=== PATIENT | male | born 1950 | race Caucasian/White ===

== ENCOUNTER 2023-07-24 10:33 | Outpatient (CLI) | payer MEDICARE, BC, SELFPAY ==
--- NOTE | 2023-07-24 12:50 | P.ANES_ITS ---
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
== END 2023-07-24 10:34 | disposition home or self-care (01) ==
PROVIDERS: PCP Family Medicine; Visit Provider Internal Medicine Gastroenterology
DX: Z12.11 Encounter for screening for malignant neoplasm of colon (principal)
CPT/HCPCS: 00812; 45378; 99100; J2704

== ENCOUNTER 2023-08-29 12:33 | Emergency (ER) | payer MEDICARE, BC, SELFPAY ==
[2023-08-29] VITALS (33 sets, daily range): BP systolic 90–133; BP diastolic 53–67; PULSE 83–95; RESP 18; TEMP 36.7; O2SAT 92–100; BMI 22.2
--- NOTE | 2023-08-29 13:00 | ED.GENADULT ---
HPI - General Adult General Date Seen: 08/29/23 Chief complaint: Chest Pain Stated complaint: Chest pain, arms numb Time Seen by Provider: 08/29/23 12:41 History of Present Illness HPI narrative: 72-year-old gentleman cries with a history of coronary disease and LAD stents, aortic stenosis and TAVR, type 2 diabetes, diabetic retinopathy, prostate cancer and prostatectomy, Parkinson's disease. He normal follows with [facility] for his primary care. He is on aspirin but not Plavix for his coronary disease. He last had stents about 3 years ago. He had a T IV are 1 or 2 years ago. He had a follow-up echocardiogram 2 months ago in June that he says was normal. He is on glipizide, metformin, Jardiance for diabetes. He is on carbidopa/levodopa for Parkinson's. He takes baby aspirin and Lipitor for his coronary disease. He is normally very active and physically active all the time. He works at a [employer] and often does a lot of heavy lifting and exertion. He notes that for the past 2 weeks or 10 days he has been symptomatic worse sometimes when he exerts heavily he gets mild discomfort in his chest. Symptoms have gotten worse for the past couple of days and in particular he noted this morning when he was caring a box of books for his at home he got substernal chest discomfort with bilateral upper arm weakness and numbness. This was very reminiscent to him of when he had a blockage in his coronary is a few years ago. For his episodes of chest discomfort always occur with exertion and get better with rest. Initially he had do fairly strenuous exertion triggered but today he was only caring a box a short distance when he got the symptoms. Episode happened about 10 this morning, 3 hours prior to presentation. As he presents to the ER he is not having any active symptoms per No shortness of breath. No recent cough. No fever. No swelling in his legs. No recent travel. No recent black or bloody stools. No abdominal pain. No nausea or vomiting. No history of anemia. He does take Sinemet for Parkinson's and needs his afternoon time dose. Related Data Home Medications Medication Instructions Recorded Confirmed aspirin 81 mg capsule 81 mg PO DAILY 08/29/23 08/29/23 atorvastatin 40 mg tablet 40 mg PO HS 08/29/23 08/29/23 carbidopa 25 mg-levodopa 100 mg 2 tab PO TID 08/29/23 08/29/23 tablet cyanocobalamin (vitamin B-12) 500 500 mcg PO DAILY 08/29/23 08/29/23 mcg tablet empagliflozin 25 mg tablet 25 mg PO DAILY 08/29/23 08/29/23 (Jardiance) ergocalciferol (vitamin D2) 1,250 1,250 mcg PO 3XW 08/29/23 08/29/23 mcg (50,000 unit) capsule (Drisdol) glipizide 10 mg tablet, extended 10 mg PO DAILY 08/29/23 08/29/23 release 24 hr metformin 500 mg tablet 1,000 mg PO BID 08/29/23 08/29/23 nitroglycerin 0.4 mg sublingual 0.4 mg sublingual Q5M PRN 08/29/23 08/29/23 tablet Allergies Allergy/AdvReac Type Severity Reaction Status Date / Time No Known Drug Allergies Allergy Verified 08/29/23 12:44 [facility] Social History Smoking Status: Never smoker Do you use any of these nicotine containing products: None Non-prescribed substance use: denies use Exam Narrative: Exam Narrative: Constitutional: Appears well-developed and well-nourished. Alert. Conversant. Non toxic. HENT: Head: Atraumatic. Nose: Nose normal. Mouth/Throat: Oral mucosa is clear and moist. no trismus. Pharynx normal. Tonsils symmetric. No tonsillar enlargement, erythema, or exudate. Eyes: Conjunctivae normal. EOM normal. Pupils equal, round, and reactive to light. No scleral icterus. Neck: Normal range of motion. Neck supple. No tracheal deviation present. No JVD Cardiovascular: Normal rate, regular rhythm. No gallop. No friction rub. Cyst on murmur heard. Symmetric radial and PT artery pulses Pulmonary/Chest: Effort normal. No stridor. No respiratory distress. No wheezes. No rales. No rhonchi . No tenderness. Abdominal: Soft. Bowel sounds normal. No distension. No mass. No tenderness. No rebound. No guarding. Musculoskeletal: RUE: Normal range of motion. No tenderness. No deformity LUE: Normal range of motion. No tenderness. No deformity RLE: Normal range of motion. No edema. No tenderness. No deformity LLE: Normal range of motion. No edema. No tenderness. No deformity Neurological: Alert and oriented to person, place, and time. Normal strength. CN II-VII intact. No sensory deficit. GCS eye subscore is 4. GCS verbal subscore is 5. GCS motor subscore is 6. Normal coordination Skin: Skin is warm and dry. Pale but no mottling or diaphoresis. No rash noted. No pallor. Normal capillary refill. Psychiatric: Normal mood. Normal affect. Const: Vital Signs, click to edit/add: Vital Signs - 24 hr 08/29/23 12:44 08/29/23 12:48 08/29/23 12:49 Temperature 98.1 F Pulse Rate 87 88 Pulse Rate [Pulse Oximeter] 92 Respiratory Rate 18 Blood Pressure 102/63 Blood Pressure [Ri ght Upper Arm] 120/67 Pulse Oximetry 99 98 97 Oxygen Delivery Me thod Room Air 08/29/23 13:00 08/29/23 13:02 08/29/23 13:15 Temperature Pulse Rate 87 88 93 Pulse Rate [Pulse Oximeter] Respiratory Rate Blood Pressure 96/62 Blood Pressure [Ri ght Upper Arm] Pulse Oximetry 97 98 97 Oxygen Delivery Me thod 08/29/23 13:22 08/29/23 13:31 08/29/23 13:41 Temperature Pulse Rate 87 95 89 Pulse Rate [Pulse Oximeter] Respiratory Rate Blood Pressure 108/60 105/61 Blood Pressure [Ri ght Upper Arm] Pulse Oximetry 97 96 97 Oxygen Delivery Me thod 08/29/23 13:45 08/29/23 14:00 08/29/23 14:02 Temperature Pulse Rate 86 84 88 Pulse Rate [Pulse Oximeter] Respiratory Rate Blood Pressure 92/53 L Blood Pressure [Ri ght Upper Arm] Pulse Oximetry 97 96 99 Oxygen Delivery Me thod 08/29/23 14:15 08/29/23 14:22 08/29/23 14:23 Temperature Pulse Rate 83 86 84 Pulse Rate [Pulse Oximeter] Respiratory Rate Blood Pressure 107/61 Blood Pressure [Ri ght Upper Arm] Pulse Oximetry 96 97 97 Oxygen Delivery Me thod 08/29/23 14:30 08/29/23 14:42 08/29/23 14:45 Temperature Pulse Rate 92 88 86 Pulse Rate [Pulse Oximeter] Respiratory Rate Blood Pressure 100/60 Blood Pressure [Ri ght Upper Arm] Pulse Oximetry 97 98 99 Oxygen Delivery Me thod 08/29/23 15:00 08/29/23 15:01 08/29/23 15:15 Temperature Pulse Rate 85 83 85 Pulse Rate [Pulse Oximeter] Respiratory Rate Blood Pressure 109/63 Blood Pressure [Ri ght Upper Arm] Pulse Oximetry 97 97 98 Oxygen Delivery Me thod 08/29/23 15:21 08/29/23 15:21 08/29/23 15:30 Temperature Pulse Rate 83 83 83 Pulse Rate [Pulse Oximeter] Respiratory Rate Blood Pressure 104/62 104/62 Blood Pressure [Ri ght Upper Arm] Pulse Oximetry 98 98 99 Oxygen Delivery Me thod 08/29/23 15:42 08/29/23 15:45 08/29/23 16:00 Temperature Pulse Rate 90 84 86 Pulse Rate [Pulse Oximeter] Respiratory Rate Blood Pressure 107/61 Blood Pressure [Ri ght Upper Arm] Pulse Oximetry 98 99 99 Oxygen Delivery Me thod 08/29/23 16:02 08/29/23 16:15 08/29/23 16:21 Temperature Pulse Rate 88 93 85 Pulse Rate [Pulse Oximeter] Respiratory Rate Blood Pressure 90/63 105/63 Blood Pressure [Ri ght Upper Arm] Pulse Oximetry 92 98 98 Oxygen Delivery Me thod 08/29/23 16:44 08/29/23 16:45 08/29/23 17:00 Temperature Pulse Rate 86 86 91 Pulse Rate [Pulse Oximeter] Respiratory Rate Blood Pressure 133/57 L Blood Pressure [Ri ght Upper Arm] Pulse Oximetry 98 99 99 Oxygen Delivery Me thod 08/29/23 17:02 Temperature Pulse Rate 94 Pulse Rate [Pulse Oximeter] Respiratory Rate Blood Pressure 106/53 L Blood Pressure [Ri ght Upper Arm] Pulse Oximetry 100 Oxygen Delivery Me thod Course Course ED Course: Recheck-vital signs stable. Asymptomatic while resting in bed. Discussed anemia with the patient and his Reevaluation(s) Reevaluation #1: Recheck-discussed with Cardiology, Dr. Avila. She agrees that patient would benefit from transfer to [place] where he can have further evaluation for his anemia and if angina fails to improve could have an angiogram to re-evaluate his coronaries per Reevaluation #2: Recheck-consent obtained for blood transfusion. Transfer to [place] will be delayed by at least a few hours due to bed availability. Vital Signs Vital signs: Initial Vital Signs Temperature 98.1 F 08/29/23 12:44 Temperature Source Temporal Artery Scan 08/29/23 12:44 Pulse Rate 92 08/29/23 12:44 Respiratory Rate 18 08/29/23 12:44 Blood Pressure 120/67 08/29/23 12:44 Blood Pressure Mean 84 08/29/23 12:44 Blood Pressure Position Sitting 08/29/23 12:44 Pulse Oximetry 99 08/29/23 12:44 Oxygen Delivery Method Room Air 08/29/23 12:44 Vital Signs Temperature 98.1 F 08/29/23 12:44 Pulse Rate 92 08/29/23 12:44 Respiratory Rate 18 08/29/23 12:44 Blood Pressure 120/67 08/29/23 12:44 Pulse Oximetry 99 08/29/23 12:44 Oxygen Delivery Method Room Air 08/29/23 12:44 Temperature 98.1 F 08/29/23 12:44 Pulse Rate 94 08/29/23 17:02 Respiratory Rate 18 08/29/23 12:44 Blood Pressure 106/53 L 08/29/23 17:02 Pulse Oximetry 100 08/29/23 17:02 Oxygen Delivery Method Room Air 08/29/23 12:44 Medications Administered Medications: Discontinued Medications Generic Name Dose Route Start Last Admin Trade Name Esmer PRN Reason Stop Dose Admin Aspirin 162 mg 08/29/23 13:19 08/29/23 13:46 Aspirin 81 Mg Tab.Chew PO 08/29/23 13:20 162 mg ONCE ONE Administration Carbidopa/Levodopa 2 tab 08/29/23 15:45 08/29/23 15:50 Carbidopa-Levodopa 25-100 Tablet PO 08/29/23 15:46 2 tab ONCE ONE Administration Medical Decision Making [facility] Narrative Medical decision making narrative: Very pleasant 72-year-old gentleman with a known history of coronary disease and LAD stents also a known history of aortic stenosis with TAVR presenting to the ER today with intermittent substernal chest discomfort and bilateral arm numbness and weakness associated with exertion. Symptoms are very concerning for unstable angina and symptoms intermittently progressing for the past week or 10 days. In particular he had worsening more severe symptoms this morning. At the time of presentation he is pain-free. Initial EKG does not show any evidence for STEMI or active ischemia. Initial troponin is minimally positive at 0.05. Surprisingly he also was found to be markedly anemic with a hemoglobin of 7.4. He denies any recent black or bloody stools or any other significant external bleeding. Source of his anemia is unclear. At this point it is possible that the anemia is creating a situation of demand ischemia creating his anginal-type symptoms. With anemia and since we have not definitively rule out GI bleeding, will hold off on aspirin or other anticoagulant here in the ER. I have ordered a 1st unit of packed red cells to be transfused here in the ER which will help with the patient's symptomatic anemia. In consultation with Cardiology from [facility] our plan will be transfer to [facility] where he can have transfusion until anginal symptoms abhishek and further workup for his anemia. He will be transferred to the telemetry floor. Lab Data Labs: Lab Results 08/29/23 08/29/23 Range/Units 12:45 15:53 WBC 6.77 (4.50-11.00) K/uL RBC 2.74 L (4.30-5.90) m/uL Hgb 7.4 L* (13.5-17.5) gm/dL Hct 23.7 L (37.0-53.0) % MCV 87 (80-100) fL MCH 27 (26-34) pg MCHC 31 L (32-36) gm/dL RDW Coeff of Stacey 14.3 (11.5-15.5) % Plt Count 136 L (140-440) K/uL Neut % (Auto) 81.9 H (42.0-72.0) % Lymph % (Auto) 11.1 L (20-44) % [place] % (Auto) 6.5 (0.0-11.0) % Eos % (Auto) 0.1 (0.0-7.0) % Baso % (Auto) 0.3 (0.0-3.0) % Neut # (Auto) 5.50 (1.7-7.0) K/uL Lymph # (Auto) 0.80 L (0.90-2.90) K/uL [place] # (Auto) 0.40 (0.00-0.90) K/UL Eos # (Auto) 0.01 (0.00-0.50) K/uL Baso # (Auto) 0.02 (0.00-0.30) K/uL Abs Immat Gran (auto) 0.01 (0.00-0.30) K/uL Imm/Tot Granulo (auto) 0.1 % Sodium 134 L (135-149) mmol/L Potassium 5.2 H (3.6-5.1) mmol/L Chloride 107 (96-114) mmol/L Carbon Dioxide 17 L (20-32) mmol/L Anion Gap 10 (7-15) mEq/L BUN 47 H (7-30) mg/dL Creatinine 0.9 (0.5-1.5) mg/dL Estimated Creat Clear 63.31 Estimated GFR 90 ml/min Glucose 264 H (60-115) mg/dL Calcium 9.3 (8.4-10.6) mg/dL Troponin I 0.05 H (0.01-0.04) ng/mL Blood Type O Negative Antibody Screen NEGATIVE Hemolysis Bld Bag Check Cancelled Pre-Trans Antibody Scrn Cancelled Pre-Trans LUIS Result Cancelled Pre-Trans XM Immed Spin Cancelled Post-Trans Blood Type Cancelled Post-Tx Serum Hemolysis Cancelled Post-Trans Antibody Scrn Cancelled Post-Trans XM Immed Spin Cancelled Reaction Pathol Review Cancelled Post-Tx Rxn LUIS Result Cancelled Post-Tx Rxn Xmatch Int Cancelled Imaging Data Chest x-ray: Attestation: I have reviewed the pertinent imaging results. Radiologist's impression: Findings/Impression: Cardiovascular and mediastinum: Normal heart size status post aortic valve replacement. Atherosclerosis. Lungs and pleural spaces: No pleural effusion or pneumothorax. Low lung volumes without focal consolidation. Bones and soft tissues: Old compression fracture midthoracic spine. ECG Data Attestation: I personally reviewed and interpreted this ECG as follows: Interpretation: Normal sinus rhythm rate 89 IL 144 QRS axis normal axis ST segment/T wave: No pathologic Q-waves. No ST segment elevation or depression. QTc: 413 Discharge Plan Discharge Clinical Impression: Anemia, Unstable angina Patient Disposition: Xfer Other Prescriptions: No Action atorvastatin 40 mg tablet 40 mg PO HS carbidopa-levodopa 25-100 mg tablet 2 tab PO TID metformin 500 mg tablet 1,000 mg PO BID glipizide 10 mg tablet extended release 24hr 10 mg PO DAILY nitroglycerin 0.4 mg tablet, sublingual 0.4 mg sublingual Q5M PRN Jardiance 25 mg tablet 25 mg PO DAILY ergocalciferol (vitamin D2) [Drisdol] 1,250 mcg (50,000 unit) capsule 1,250 mcg PO 3XW aspirin 81 mg capsule 81 mg PO DAILY cyanocobalamin (vitamin B-12) 500 mcg tablet 500 mcg PO DAILY Stand Alone Forms: [facility] Info Instructions
--- NOTE | 2023-08-29 13:19 | XR_ITS ---
Patient: JENNY ROYAL Facility:?[facility] Patient ID:?[id number] Site Patient ID:?[id number]. Site :?[id number] Study:?XRay-Chest 2V-08/29/2023 1:36:57 PM Ordering Physician:?DR. NICHOLS Final Report: Indication: Chest pain and arm numbness Technique: Chest 2 views Comparison: None Findings/Impression: Cardiovascular and mediastinum: Normal heart size status post aortic valve replacement. Atherosclerosis. Lungs and pleural spaces: No pleural effusion or pneumothorax. Low lung volumes without focal consolidation. Bones and soft tissues: Old compression fracture midthoracic spine. Dictated by Everardo Mckenzie MD @ 08/29/2023 1:44:47 PM Signed by:?Everardo Mckenzie MD @08/29/2023 1:44:47 PM (Electronic Signature)
[2023-08-29 13:29] LABS: Basophils Absolute Auto 0.02 K/uL (0.00-0.30); Basophils Percent Auto 0.3 % (0.0-3.0); Eosinophils Absolute Auto 0.01 K/uL (0.00-0.50); Eosinophils Percent Auto 0.1 % (0.0-7.0); Hematocrit 23.7 % (37.0-53.0); Immature Granulocytes Abs Auto 0.01 K/uL (0.00-0.30); Immature Granulocytes Pct Auto 0.1 %; Lymphocytes Percent Auto 11.1 % (20-44); Mean Corpuscular HGB Conc 31 gm/dL (32-36); Mean Corpuscular Hemoglobin 27 pg (26-34); Mean Corpuscular Volume 87 fL (80-100); Monocytes Percent Auto 6.5 % (0.0-11.0); Neutrophils Percent Auto 81.9 % (42.0-72.0); Platelet Count* 136 K/uL (140-440); RDW Coefficient of Variation % 14.3 % (11.5-15.5); Red Blood Count 2.74 m/uL (4.30-5.90); White Blood Count* 6.77 K/uL (4.50-11.00)
[2023-08-29 13:34] LABS: Hemoglobin* 7.4 gm/dL (13.5-17.5); Slide Review Reflex No
[2023-08-29 13:41] LABS: Chloride* 107 mmol/L (96-114); Potassium* 5.2 mmol/L (3.6-5.1); Sodium* 134 mmol/L (135-149)
[2023-08-29 13:44] LABS: Anion Gap 10 mEq/L (7-15); Blood Urea Nitrogen* 47 mg/dL (7-30); Carbon Dioxide* 17 mmol/L (20-32); Creatinine* 0.9 mg/dL (0.5-1.5); Est. Creatinine Clearance* 63.31; Estimated Glomerular Filt Rate 90 ml/min
[2023-08-29 13:45] LABS: Calcium* 9.3 mg/dL (8.4-10.6); Glucose* 264 mg/dL (60-115)
[2023-08-29] MEDS: ASPIRIN 81 MG TAB.CHEW 162 MG PO (13:46)
[2023-08-29 13:57] LABS: Troponin I* 0.05 ng/mL (0.01-0.04)
[2023-08-29] MEDS: CARBIDOPA-LEVODOPA 25-100 TABLET 2 TAB PO (15:50)
== END 2023-08-29 18:00 | disposition other institution (70) ==
PROVIDERS: Emergency Provider Emergency Medicine; PCP Family Medicine
DX: I20.0 Unstable angina (principal); D64.9 Anemia, unspecified
CPT/HCPCS: 36415; 71046; 80048; 82270; 84484; 85025; 86850; 86900; 86901; 86922; 93005; 99284; 99285; A9270

== ENCOUNTER 2023-08-29 17:34 | Outpatient (CLI) | payer MEDICARE, BC, SELFPAY | END 2023-08-29 17:35 | disposition home or self-care (01) | LOC: AMB 08-31 12:22 | PROVIDERS: PCP Family Medicine; Visit Provider Emergency Medicine | DX: I20.0 Unstable angina (principal); D64.9 Anemia, unspecified | CPT/HCPCS: A0425; A0427 ==

== ENCOUNTER 2024-01-18 14:12 | Emergency (ER) | payer MEDICARE, BC, SELFPAY ==
[2024-01-18] VITALS (53 sets, daily range): BP systolic 100–128; BP diastolic 58–81; PULSE 77–84; RESP 16–18; TEMP 35.9–36.7; O2SAT 94–100
--- NOTE | 2024-01-18 14:31 | CRLHL7_ITS ---
For Patients: As a result of the Cures Act, medical imaging exams and procedure reports are released immediately into your electronic medical record. You may view this report before your referring provider. If you have questions, please contact your health care provider. INDICATION: Shortness of breath. TECHNIQUE: Chest 2 views. COMPARISON: None. FINDINGS: Cardiovascular and mediastinum: Heart size is normal. Unremarkable mediastinum. 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 Lungs and pleural spaces: Lungs are clear. No sign of infiltrate or mass. No sign of pleural effusion. No pneumothorax. Bones and soft tissues: No significant findings. IMPRESSION: No acute or significant findings. Dictated by Nestor Malin MD @ 01/18/2024 3:37:42 PM (Electronically Signed)
[2024-01-18 14:42] LABS: Basophils Absolute Auto 0.04 K/uL (0.00-0.30); Basophils Percent Auto 0.5 % (0.0-3.0); Eosinophils Absolute Auto 0.04 K/uL (0.00-0.50); Eosinophils Percent Auto 0.5 % (0.0-7.0); Hematocrit 26.5 % (37.0-53.0); Hemoglobin* 8.4 gm/dL (13.5-17.5); Immature Granulocytes Abs Auto 0.02 K/uL (0.00-0.30); Immature Granulocytes Pct Auto 0.3 %; Lymphocytes Absolute Auto 2.78 K/uL (0.90-2.90); Lymphocytes Percent Auto 37.9 % (20-44); Mean Corpuscular HGB Conc 32 gm/dL (32-36); Mean Corpuscular Hemoglobin 28 pg (26-34); Mean Corpuscular Volume 87 fL (80-100); Monocytes Percent Auto 11.7 % (0.0-11.0); Neutrophils Absolute Auto 3.59 K/uL (1.7-7.0); Neutrophils Percent Auto 49.1 % (42.0-72.0); Platelet Count* 215 K/uL (140-440); RDW Coefficient of Variation % 16.3 % (11.5-15.5); Red Blood Count 3.06 m/uL (4.30-5.90); White Blood Count* 7.33 K/uL (4.50-11.00)
[2024-01-18 14:43] LABS: Lactate* 6.3 mmol/L (0.5-1.9)
[2024-01-18 14:55] LABS: Chloride* 98 mmol/L (96-114); Potassium* 4.3 mmol/L (3.6-5.1); Sodium* 129 mmol/L (135-149)
[2024-01-18 14:58] LABS: Anion Gap 12 mEq/L (7-15); Blood Urea Nitrogen* 21 mg/dL (7-30); Carbon Dioxide* 19 mmol/L (20-32); Estimated Glomerular Filt Rate 79 ml/min; Glucose* 274 mg/dL (60-115)
[2024-01-18 14:59] LABS: Calcium* 8.9 mg/dL (8.4-10.6)
[2024-01-18 15:10] LABS: Slide Review Reflex Yes
[2024-01-18 15:12] LABS: Slide Review Acceptable Review (Acceptable); Troponin I* < 0.01 ng/mL (0.01-0.04)
[2024-01-18] MEDS: 0.9 % SODIUM CHLORIDE 500 ML 500 ML IV (15:12)
[2024-01-18 15:19] LABS: HCO3 VBG 21 mmol/L (21-28); PCO2 VBG 35 mmHG (40-50); PO2 VBG 36.2 mmHG (25-47); pH VBG 7.383 (7.32-7.43)
--- NOTE | 2024-01-18 15:21 | ED_ITS ---
HPI - General Adult General Chief complaint: Weakness Stated complaint: low energy, wants blood transfusion Time Seen by Provider: 01/18/24 14:21 Source: patient Mode of arrival: ambulatory Limitations: no limitations History of Present Illness HPI narrative: 73-year-old male coming in today complaining of weakness. This has been going on for over a week. He states that he has a history of chronic anemia and has required blood transfusions before. He states that this is what it has felt like in the past when he needed blood. He stated that his hemoglobin on Monday of this week was 8.3. He is short of breath. He complains of a shortness of breath being worse with exertion. He denies chest pain. He does have a history of coronary artery disease. He states that he has been worked up for his blood loss and chronic anemia. He believes he has another upper endoscopy scheduled soon, not quite sure when it is going to be. He has been admitted in the past for low hemoglobin. He does have dark stools however he is taking iron in his stools have been dark in the past because of this. He states that he has had a colonoscopy. He denies any fevers, chills, nausea or vomiting. He denies cough. He denies abdominal pain. He denies urinary symptoms such as frequency urgency or dysuria. He denies diarrhea. He denies any skin rashes or bug bites. Related Data Home Medications ?Medication ?Instructions ?Recorded ?Confirmed aspirin 81 mg capsule 81 mg PO DAILY 08/29/23 01/18/24 atorvastatin 40 mg tablet 40 mg PO HS 08/29/23 01/18/24 carbidopa 25 mg-levodopa 100 mg 2 tab PO TID 08/29/23 01/18/24 tablet cyanocobalamin (vitamin B-12) 500 500 mcg PO DAILY 08/29/23 01/18/24 mcg tablet empagliflozin 25 mg tablet 25 mg PO DAILY 08/29/23 01/18/24 (Jardiance) ergocalciferol (vitamin D2) 1,250 1,250 mcg PO 3XW 08/29/23 01/18/24 mcg (50,000 unit) capsule (Drisdol) glipizide 10 mg tablet, extended 10 mg PO DAILY 08/29/23 01/18/24 release 24 hr metformin 500 mg tablet 1,000 mg PO BID 08/29/23 01/18/24 nitroglycerin 0.4 mg sublingual 0.4 mg sublingual Q5M PRN 08/29/23 01/18/24 tablet pantoprazole 40 mg tablet,delayed 40 mg PO BID 01/18/24 01/18/24 release Allergies Allergy/AdvReac Type Severity Reaction Status Date / Time No Known Drug Allergies Allergy Verified 08/29/23 12:44 Review of Systems Status of ROS: Reports: 10 or more systems reviewed and unremarkable except as noted in History and below [facility] Social History Smoking Status: Never smoker Do you use any of these nicotine containing products: None How often do you have a drink containing alcohol: never AUDIT-C Alcohol total score: 0 Non-prescribed substance use: denies use Exam Narrative: Exam Narrative: Well-nourished well-developed patient in no acute distress. Alert and oriented. Answers questions appropriately. Mood and affect are appropriate. Thoughts are goal oriented and rational. No tangential or magical thinking noted. Patient speaks in full sentences without needing to catch his breath. Speech is not slurred or pressured. HEENT: Normocephalic atraumatic. Pupils are equally round reactive to light. Extraocular muscles are intact. Conjunctivae are moist without any icterus noted, conjunctiva slightly pale. Moist mucous membranes. Posterior pharynx is normal. Neck is supple. Cardiovascular: Heart is regular rate and rhythm S1 and S2 are present without any murmurs. Lungs: Clear to auscultation bilaterally no wheezes rhonchi or rales are appreciated. Patient takes deep breaths without any discomfort. Abdomen: Soft and nontender nondistended with normal bowel sounds. Extremities: Bilateral lower extremities are without edema. Skin: Well perfused, andres Const: Vital Signs, click to edit/add: Vital Signs - 24 hr 01/18/24 14:15 01/18/24 14:52 01/18/24 15:00 Temperature 97.1 F L Pulse Rate 81 78 Pulse Rate [Left P ulse Oximeter] 84 Respiratory Rate 18 Blood Pressure Blood Pressure [Le ft Upper Arm] 100/59 L Pulse Oximetry 100 99 99 Oxygen Delivery Me thod Room Air 01/18/24 15:01 01/18/24 15:02 01/18/24 15:15 Temperature Pulse Rate 80 79 79 Pulse Rate [Left P ulse Oximeter] Respiratory Rate Blood Pressure 123/71 Blood Pressure [Le ft Upper Arm] Pulse Oximetry 98 98 98 O[facility] Delivery [facility] 01/18/24 15:30 01/18/24 15:31 01/18/24 15:45 Temperature Pulse Rate 78 78 77 Pulse Rate [Left P ulse Oximeter] Respiratory Rate Blood Pressure 126/69 Blood Pressure [Le ft Upper Arm] Pulse Oximetry 98 98 97 [facility] 01[facility] 16:00 01/18/24 16:02 01/18/24 16:15 Temperature Pulse Rate 79 81 77 Pulse Rate [Left P ulse Oximeter] Respiratory Rate Blood Pressure 106/58 L Blood Pressure [Le ft Upper Arm] Pulse Oximetry 97 96 98 Oxygen Delivery [facility] 01/18/24 16:30 01/18/24 16:31 01/18/24 16:45 Temperature Pulse Rate 79 81 78 Pulse Rate [Left P ulse Oximeter] Respiratory Rate Blood Pressure 128/81 Blood Pressure [Le ft Upper Arm] Pulse Oximetry 98 97 97 Oxygen Delivery [facility] 01/18/24 17:00 01/18/24 17:01 01/18/24 17:02 Temperature Pulse Rate 78 79 78 Pulse Rate [Left P ulse Oximeter] Respiratory Rate Blood Pressure 114/71 Blood Pressure [Le ft Upper Arm] Pulse Oximetry 99 98 98 Oxygen Delivery [facility] 01/18/24 17:14 01/18/24 17:15 01/18/24 17:30 Temperature 96.9 F L Pulse Rate 81 81 80 Pulse Rate [Left P ulse Oximeter] Respiratory Rate 16 Blood Pressure 114/71 Blood Pressure [Le ft Upper Arm] Pulse Oximetry 98 99 [facility] 01/18/24 17:31 01/18/24 17:37 01/18/24 17:38 Temperature 96.7 F L 96.7 F L Pulse Rate 81 79 80 Pulse Rate [Left P ulse Oximeter] Respiratory Rate 16 16 Blood Pressure 120/70 112/64 112/64 Blood Pressure [Le ft Upper Arm] Pulse Oximetry 98 99 99 [facility] 01/18/24 17:39 01/18/24 17:45 01/18/24 17:46 Temperature Pulse Rate 80 81 84 Pulse Rate [Left P ulse Oximeter] Respiratory Rate Blood Pressure 112/64 110/63 Blood Pressure [Le ft Upper Arm] Pulse Oximetry 98 98 98 Oxygen Delivery Me thod 01/18/24 18:00 01/18/24 18:01 01/18/24 18:02 Temperature Pulse Rate 82 80 80 Pulse Rate [Left P ulse Oximeter] Respiratory Rate Blood Pressure 108/65 Blood Pressure [Le ft Upper Arm] Pulse Oximetry 98 97 98 Oxygen Delivery Me thod 01/18/24 18:15 01/18/24 18:16 01/18/24 18:23 Temperature 98.0 F Pulse Rate 82 82 78 Pulse Rate [Left P ulse Oximeter] Respiratory Rate 16 Blood Pressure 117/67 112/67 Blood Pressure [Le ft Upper Arm] Pulse Oximetry 99 99 98 Oxygen Delivery Me thod 01/18/24 18:28 01/18/24 18:30 01/18/24 18:31 Temperature Pulse Rate 79 79 81 Pulse Rate [Left P ulse Oximeter] Respiratory Rate Blood Pressure 112/67 121/71 Blood Pressure [Le ft Upper Arm] Pulse Oximetry 98 98 97 Oxygen Delivery Me od 01/18/24 18:45 01/18/24 18:46 01/18/24 18:49 Temperature Pulse Rate 79 79 79 Pulse Rate [Left P ulse Oximeter] Respiratory Rate Blood Pressure 122/74 117/65 Blood Pressure [Le ft Upper Arm] Pulse Oximetry 98 97 97 [facility] 01/[facility]/24 18:50 01/18/24 18:50 01/18/24 19:00 Temperature 97.2 F L Pulse Rate 79 78 81 Pulse Rate [Left P ulse Oximeter] Respiratory Rate 16 Blood Pressure 117/65 Blood Pressure [Le ft Upper Arm] Pulse Oximetry 97 98 97 Oxygen Delivery Me thod 01/18/24 19:01 01/18/24 19:15 01/18/24 19:16 Temperature Pulse Rate 83 83 82 Pulse Rate [Left P ulse Oximeter] Respiratory Rate Blood Pressure 105/72 114/70 Blood Pressure [Le ft Upper Arm] Pulse Oximetry 98 96 96 Oxygen Delivery Me thod 01/18/24 19:17 01/18/24 19:30 01/18/24 19:31 Temperature Pulse Rate 81 83 82 Pulse Rate [Left P ulse Oximeter] Respiratory Rate Blood Pressure 108/64 Blood Pressure [Le ft Upper Arm] Pulse Oximetry 96 96 95 Oxygen Delivery Me thod 01/18/24 19:53 01/18/24 19:54 Temperature Pulse Rate 84 84 Pulse Rate [Left P ulse Oximeter] Respiratory Rate Blood Pressure 124/75 Blood Pressure [Le ft Upper Arm] Pulse Oximetry 96 96 Oxygen Delivery Me thod Course Course ED Course: EKG, read by me, shows normal sinus rhythm with a pulse of 78. Chest x-ray, read by me, is unremarkable. CBC shows a white cell count that is normal at 7.3, hemoglobin is 8.4, hematocrit 26.5. Normal platelet count. VBG shows a low pCO2 of 35, otherwise unremarkable. Sodium is low at 129. Glucose is 274. Lactate is markedly elevated at 6.3. Troponin is less than 0.01. Negative COVID The CRP less than 0.05. UA unremarkable. Patient was given 500 mL of normal saline over an hour. After we received a CBC results back we did decide to transfuse 1 unit of packed red blood cells. Risks and benefits were discussed and patient wished to proceed. Repeat lactate was unchanged at 6.3. Patient was feeling better. I did look through his blood pressures and pulse, no significant change from previous ER visits or clinic visits. He does not appear to be septic. Unclear why the lactate is so high. Vital Signs Vital signs: Initial Vital Signs Temperature 97.1 F L 01/18/24 14:15 Temperature Source Temporal Artery Scan 01/18/24 14:15 Pulse Rate 84 01/18/24 14:15 Pulse Rhythm Regular 01/18/24 14:15 Pulse Strength 3+ Normal 01/18/24 14:15 Respiratory Rate 18 01/18/24 14:15 Blood Pressure 100/59 L 01/18/24 14:15 Blood Pressure Mean 72 01/18/24 14:15 Blood Pressure Position Sitting 01/18/24 14:15 Pulse Oximetry 100 01/18/24 14:15 Oxygen Delivery Method Room Air 01/18/24 14:15 Vital Signs Temperature 97.1 F L 01/18/24 14:15 Pulse Rate 84 01/18/24 14:15 Respiratory Rate 18 01/18/24 14:15 Blood Pressure 100/59 L 01/18/24 14:15 Pulse Oximetry 100 01/18/24 14:15 Oxygen Delivery Method Room Air 01/18/24 14:15 Temperature 97.2 F L 01/18/24 18:50 Pulse Rate 84 01/18/24 19:54 Respiratory Rate 16 01/18/24 18:50 Blood Pressure 124/75 01/18/24 19:53 Pulse Oximetry 96 01/18/24 19:54 Oxygen Delivery Method Room Air 01/18/24 14:15 Medications Administered Medications: Generic Name Dose Route Start Last Admin Trade Name Freq PRN Reason Stop Dose Admin Sodium Chloride 250 ml 01/18/24 15:13 01/18/24 17:15 0.9 % Sodium Chloride 250 Ml IV 01/19/24 23:59 45 ml ONCE PRN Administration Discontinued Medications Generic Name Dose Route Start Last Admin Trade Name Freq PRN Reason Stop Dose Admin Sodium Chloride 500 mls @ 500 mls/hr 01/18/24 15:05 01/18/24 16:16 0.9 % Sodium Chloride 500 Ml IV 01/18/24 16:04 Infused .Q1H ONE Infusion Medical Decision Making MDM Narrative Medical decision making narrative: 73-year-old male with chronic anemia, status post transfusion of 1 unit of packed red blood cells. Hyponatremia status post 500 mL of normal saline. Elevated lactate, unclear etiology. Patient is instructed to follow up in the clinic tomorrow for repeat lactate. Medical Records Medical records reviewed: Yes I reviewed the patient's medical records Lab Data Lab results reviewed: Yes I reviewed the patient's lab results Labs: Lab Results 01/18/24 01/18/24 01/18/24 Range/Units 14:27 14:32 14:40 WBC 7.33 (4.50-11.00) K/uL RBC 3.06 L (4.30-5.90) m/uL Hgb 8.4 L (13.5-17.5) gm/dL Hct 26.5 L (37.0-53.0) % MCV 87 (80-100) fL MCH 28 (26-34) pg MCHC 32 (32-36) gm/dL RDW Coeff of Stacey 16.3 H (11.5-15.5) % Plt Count 215 (140-440) K/uL Neut % (Auto) 49.1 (42.0-72.0) % Lymph % (Auto) 37.9 (20-44) % Clay % (Auto) 11.7 H (0.0-11.0) % Eos % (Auto) 0.5 (0.0-7.0) % Baso % (Auto) 0.5 (0.0-3.0) % Neut # (Auto) 3.59 (1.7-7.0) K/uL Lymph # (Auto) 2.78 (0.90-2.90) K/uL Clay # (Auto) 0.90 (0.00-0.90) K/UL Eos # (Auto) 0.04 (0.00-0.50) K/uL Baso # (Auto) 0.04 (0.00-0.30) K/uL Abs Immat Gran (auto) 0.02 (0.00-0.30) K/uL Imm/Tot Granulo (auto) 0.3 % Diff Slide Review Acceptable Review (Acceptable) VBG pH (7.32-7.43) VBG pCO2 (40-50) mmHG VBG pO2 (25-47) mmHG VBG HCO3 (21-28) mmol/L Sodium 129 L (135-149) mmol/L Potassium 4.3 (3.6-5.1) mmol/L Chloride 98 (96-114) mmol/L Carbon Dioxide 19 L (20-32) mmol/L Anion Gap 12 (7-15) mEq/L BUN 21 (7-30) mg/dL Creatinine 1.0 (0.5-1.5) mg/dL Estimated GFR 79 ml/min Glucose 274 H (60-115) mg/dL Lactate 6.3 H* (0.5-1.9) mmol/L Calcium 8.9 (8.4-10.6) mg/dL Troponin I < 0.01 L (0.01-0.04) ng/mL C-Reactive Protein (0.5-1.0) mg/dL Urine Color (Yellow) Urine Appearance (Clear) Urine pH (5.0-8.5) Ur Specific [place] (1.000-1.030) Urine Protein (Negative) Urine Glucose (UA) (Negative) Urine Ketones (Negative) Urine Blood (Negative) Urine Nitrite (Negative) Urine Bilirubin (Negative) Urine Urobilinogen (0.2-1.0) Ur Leukocyte Esterase (Negative) Urine RBC (0-2) Urine WBC (0-5) Ur Squamous Epith Cells (None-Few) Urine Bacteria (None) SARS-CoV-2 (PCR) Negative SARS-CoV-2 (Negative) POC Troponin I 0.00 L (0.01-0.04) ng/ml Blood Type O Negative Antibody Screen NEGATIVE Crossmatch (AHG) See Detail 01/18/24 01/18/24 01/18/24 Range/Units 15:12 15:18 19:06 WBC (4.50-11.00) K/uL RBC (4.30-5.90) m/uL Hgb (13.5-17.5) gm/dL Hct (37.0-53.0) % MCV (80-100) fL MCH (26-34) pg MCHC (32-36) gm/dL RDW Coeff of Stacey (11.5-15.5) % Plt Count (140-440) K/uL Neut % (Auto) (42.0-72.0) % Lymph % (Auto) (20-44) % Clay % (Auto) (0.0-11.0) % Eos % (Auto) (0.0-7.0) % Baso % (Auto) (0.0-3.0) % Neut # (Auto) (1.7-7.0) K/uL Lymph # (Auto) (0.90-2.90) K/uL Clay # (Auto) (0.00-0.90) K/UL Eos # (Auto) (0.00-0.50) K/uL Baso # (Auto) (0.00-0.30) K/uL Abs Immat Gran (auto) (0.00-0.30) K/uL Imm/Tot Granulo (auto) % Diff Slide Review (Acceptable) VBG pH 7.383 (7.32-7.43) VBG pCO2 35 L (40-50) mmHG VBG pO2 36.2 (25-47) mmHG VBG HCO3 21 (21-28) mmol/L Sodium (135-149) mmol/L Potassium (3.6-5.1) mmol/L Chloride (96-114) mmol/L Carbon Dioxide (20-32) mmol/L Anion Gap (7-15) mEq/L BUN (7-30) mg/dL Creatinine (0.5-1.5) mg/dL Estimated GFR ml/min Glucose (60-115) mg/dL Lactate 6.3 H* (0.5-1.9) mmol/L Calcium (8.4-10.6) mg/dL Troponin I (0.01-0.04) ng/mL C-Reactive Protein < 0.5 L (0.5-1.0) mg/dL Urine Color Yellow (Yellow) Urine Appearance Clear (Clear) Urine pH 5.5 (5.0-8.5) Ur Specific [place] 1.010 (1.000-1.030) Urine Protein Negative (Negative) Urine Glucose (UA) 3+ A (Negative) Urine Ketones Negative (Negative) Urine Blood Negative (Negative) Urine Nitrite Negative (Negative) Urine Bilirubin Negative (Negative) Urine Urobilinogen 0.2 (0.2-1.0) Ur Leukocyte Esterase Negative (Negative) Urine RBC 0-2 (0-2) Urine WBC 0-2 (0-5) Ur Squamous Epith Cells None (None-Few) Urine Bacteria None (None) SARS-CoV-2 (PCR) (Negative) POC Troponin I (0.01-0.04) ng/ml Blood Type Antibody Screen Crossmatch (AHG) Imaging Data Chest x-ray: Attestation: I have reviewed the pertinent imaging results. Radiologist's impression: Chest 2 views. COMPARISON: None. FINDINGS: Cardiovascular and mediastinum: Heart size is normal. Unremarkable mediastinum. 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 Lungs and pleural spaces: Lungs are clear. No sign of infiltrate or mass. No sign of pleural effusion. No pneumothorax. Bones and soft tissues: No significant findings. IMPRESSION: No acute or significant findings. ECG Data Attestation: I personally reviewed and interpreted this ECG as follows: Discharge Plan Discharge Clinical Impression: Anemia, Hyponatremia Patient Disposition: Home, Self-Care Condition: Stable Additional Instructions: Recommend you follow-up with your primary care provider tomorrow to have a repeat lactate in repeat sodium done. The labs were abnormal today and we want to make sure that they are not getting worse. Return to the ER if he develops vomiting, fevers or worsening symptoms. Prescriptions: No Action atorvastatin 40 mg tablet 40 mg PO HS carbidopa-levodopa 25-100 mg tablet 2 tab PO TID metformin 500 mg tablet 1,000 mg PO BID glipizide 10 mg tablet extended release 24hr 10 mg PO DAILY nitroglycerin 0.4 mg tablet, sublingual 0.4 mg sublingual Q5M PRN Jardiance 25 mg tablet 25 mg PO DAILY ergocalciferol (vitamin D2) [Drisdol] 1,250 mcg (50,000 unit) capsule 1,250 mcg PO 3XW aspirin 81 mg capsule 81 mg PO DAILY cyanocobalamin (vitamin B-12) 500 mcg tablet 500 mcg PO DAILY pantoprazole 40 mg tablet,delayed release (DR/EC) 40 mg PO BID Follow Up/Referrals: Alvaro Monique MD [Primary Care Provider] - Stand Alone Forms: [facility] Info Instructions
[2024-01-18 15:23] LABS: SARS PCR* Negative SARS-CoV-2 (Negative)
[2024-01-18 15:44] LABS: C Reactive Protein* < 0.5 mg/dL (0.5-1.0)
[2024-01-18] MEDS: 0.9 % SODIUM CHLORIDE 250 ml IV (17:15)
[2024-01-18 19:22] LABS: Lactate* 6.3 mmol/L (0.5-1.9)
[2024-01-18 19:54] LABS: Appearance Urine Clear (Clear); Bilirubin Urine Negative (Negative); Blood Urine Negative (Negative); Color Urine Yellow (Yellow); Glucose Urine 3+ (Negative); Ketones Urine Negative (Negative); Leukocyte Esterase Urine Negative (Negative); Nitrite Urine Negative (Negative); Protein Urine Negative (Negative); Urobilinogen Urine 0.2 (0.2-1.0); pH Urine 5.5 (5.0-8.5)
[2024-01-18 19:55] LABS: RBC Urine 0-2 (0-2); WBC Urine 0-2 (0-5)
== END 2024-01-18 20:29 | disposition home or self-care (01) ==
PROVIDERS: Emergency Provider Family Medicine; PCP Family Medicine
DX: D64.9 Anemia, unspecified (principal); E87.1 Hypo-osmolality and hyponatremia
CPT/HCPCS: 36415; 36430; 71046; 80048; 81001; 82803; 83605; 84484; 85025; 86140; 86850; 86900; 86901; 86922; 87086; 87635; 93005; 94761; 99284; 99285; J7030; J7050; P9016

== ENCOUNTER 2024-01-23 11:00 | Emergency (ER) | payer MEDICARE, BC, SELFPAY ==
[2024-01-23 13:49] VITALS: BP 97/56; PULSE 81; RESP 18; TEMP 36.1; O2SAT 98; BMI 20.9
--- NOTE | 2024-01-23 14:00 | CRLHL7_ITS ---
For Patients: As a result of the 21st Century Cures Act, medical imaging exams and procedure reports are released immediately into your electronic medical record. You may view this report before your referring provider. If you have questions, please contact your health care provider. INDICATION: ABD DISTENTION TECHNIQUE: CT of the abdomen and pelvis was obtained with 74 mL of Isovue 370 intravenous contrast. Please note that all CT scans at this facility use dose modulation, iterative reconstruction, and/or weight-based dosing when appropriate to reduce radiation dose to as low as reasonably achievable. COMPARISON: None. FINDINGS: Lower thorax: Transcatheter aortic valve replacement. Moderate coronary artery calcification. Liver and biliary tree: Nodular contour of the liver. Gallbladder: Contracted. Spleen: Mild splenomegaly. Calcified granulomata. Pancreas: Mild fatty atrophy. Adrenal glands: Normal. Kidneys and ureters: No hydronephrosis. No obstructing renal calculi. Subcentimeter hypoattenuating lesions are too small to characterize and are favored to represent cysts. Gastrointestinal tract: Mild wall thickening of the cecum. Normal appendix. No evidence of bowel obstruction. Hyperattenuating material in the gastric lumen is nonspecific and may represent ingested contents. Peritoneal cavity: Small to moderate intra-abdominal ascites. Bladder: Normal. Pelvic organs: Normal. Vasculature: Moderate calcification. Recanalized paraumbilical vein. Esophageal varices. Lymph nodes: Normal. Abdominal wall: Moderate anasarca. Musculoskeletal: Moderate degenerative changes of the visualized spine. IMPRESSION: 1. Cirrhosis with evidence of portal hypertension including mild splenomegaly and intra-abdominal varices, including esophageal varices. 2. Small to moderate intra-abdominal ascites. Moderate anasarca. 3. Mild wall thickening of the cecum is favored to relate to portal hypertension. Please note that all CT scans at this facility use dose modulation, iterative reconstruction, and/or weight-based dosing when appropriate to reduce radiation dose to as low as reasonably achievable. Dictated by Mina Norton MD @ 01/23/2024 2:45:07 PM (Electronically Signed)
[2024-01-23 14:25] LABS: Basophils Absolute Auto 0.07 K/uL (0.00-0.30); Eosinophils Absolute Auto 0.08 K/uL (0.00-0.50); Eosinophils Percent Auto 1.2 % (0.0-7.0); Hematocrit 29.2 % (37.0-53.0); Hemoglobin* 9.4 gm/dL (13.5-17.5); Immature Granulocytes Abs Auto 0.02 K/uL (0.00-0.30); Immature Granulocytes Pct Auto 0.3 %; Lymphocytes Percent Auto 33.2 % (20-44); Mean Corpuscular HGB Conc 32 gm/dL (32-36); Mean Corpuscular Hemoglobin 28 pg (26-34); Mean Corpuscular Volume 86 fL (80-100); Monocytes Percent Auto 7.8 % (0.0-11.0); Neutrophils Absolute Auto 3.92 K/uL (1.7-7.0); Neutrophils Percent Auto 56.5 % (42.0-72.0); Platelet Count* 228 K/uL (140-440); RDW Coefficient of Variation % 15.8 % (11.5-15.5); Red Blood Count 3.38 m/uL (4.30-5.90); White Blood Count* 6.93 K/uL (4.50-11.00)
[2024-01-23 14:26] LABS: Lactate* 4.6 mmol/L (0.5-1.9); Slide Review Reflex No
[2024-01-23 14:47] LABS: Albumin* 3.9 g/dL (3.3-5.0)
[2024-01-23 14:48] LABS: Chloride* 100 mmol/L (96-114); Potassium* 4.8 mmol/L (3.6-5.1); Sodium* 133 mmol/L (135-149)
[2024-01-23 14:50] LABS: Anion Gap 11 mEq/L (7-15); Bilirubin Direct* 0.6 mg/dL (0.0-0.5); Bilirubin Total* 1.4 mg/dL (0.1-1.5); Carbon Dioxide* 22 mmol/L (20-32); Creatinine* 0.8 mg/dL (0.5-1.5); Est. Creatinine Clearance* 62.37; Estimated Glomerular Filt Rate 93 ml/min
[2024-01-23 14:51] LABS: Alanine Aminotransferase* 17 U/L (4-50); Alkaline Phosphatase* 115 U/L (40-150); Aspartate Amino Transferase* 68 U/L (12-35); Blood Urea Nitrogen* 13 mg/dL (7-30); Calcium* 8.5 mg/dL (8.4-10.6); Glucose* 231 mg/dL (60-115); Total Protein* 7.6 g/dL (6.0-8.3)
[2024-01-23 15:51] VITALS: BP 119/77; PULSE 74; RESP 18; O2SAT 97
[2024-01-23 15:51] LABS: Appearance Urine Clear (Clear); Bilirubin Urine Negative (Negative); Blood Urine Negative (Negative); Color Urine Yellow (Yellow); Glucose Urine 3+ (Negative); Ketones Urine Negative (Negative); Leukocyte Esterase Urine Negative (Negative); Nitrite Urine Negative (Negative); Protein Urine Negative (Negative); Specific Gravity Urine <= 1.005 (1.000-1.030); pH Urine 5.5 (5.0-8.5)
[2024-01-23 16:02] LABS: Bacteria Urine Few; RBC Urine 0-2 (0-2); Squamous Epithelial Cell Urine Few (None-Few)
--- NOTE | 2024-01-23 16:11 | ED_ITS ---
HPI - General Adult General Chief complaint: Abdominal Pain Stated complaint: distended belly Time Seen by Provider: 01/23/24 13:52 History of Present Illness HPI narrative: This 73-year-old male comes in with distended abdomen. He was seen about 5 days ago and evaluated here in the emergency department. It was noted at that time that his lactate was elevated at around 6. There was no definitive cause for this finding. The patient was discharged home and since then reports some d istention of his abdomen. He does not report any abdominal pain, nausea, or vomiting. Related Data Home Medications ?Medication ?Instructions ?Recorded ?Confirmed aspirin 81 mg capsule 81 mg PO DAILY 08/29/23 01/18/24 atorvastatin 40 mg tablet 40 mg PO HS 08/29/23 01/18/24 carbidopa 25 mg-levodopa 100 mg 2 tab PO TID 08/29/23 01/18/24 tablet cyanocobalamin (vitamin B-12) 500 500 mcg PO DAILY 08/29/23 01/18/24 mcg tablet empagliflozin 25 mg tablet 25 mg PO DAILY 08/29/23 01/18/24 (Jardiance) ergocalciferol (vitamin D2) 1,250 1,250 mcg PO 3XW 08/29/23 01/18/24 mcg (50,000 unit) capsule (Drisdol) glipizide 10 mg tablet, extended 10 mg PO DAILY 08/29/23 01/18/24 release 24 hr metformin 500 mg tablet 1,000 mg PO BID 08/29/23 01/18/24 nitroglycerin 0.4 mg sublingual 0.4 mg sublingual Q5M PRN 08/29/23 01/18/24 tablet pantoprazole 40 mg tablet,delayed 40 mg PO BID 01/18/24 01/18/24 release Previous Rx's ?Medication ?Instructions ?Recorded furosemide 40 mg tablet 40 mg PO DAILY #30 tabs 01/23/24 spironolactone 100 mg tablet 100 mg PO DAILY #30 tabs 01/23/24 Allergies Allergy/AdvReac Type Severity Reaction Status Date / Time No Known Drug Allergies Allergy Verified 08/29/23 12:44 Review of Systems Status of ROS: Reports: 10 or more systems reviewed and unremarkable except as noted in History and below Narrative: Constitutional: No fevers, no weight gain or loss. Eyes: No discharge. No vision changes. HENT: No congestion, no sore throat, no ear pain. Cardiovascular: No chest pain, no palpitations. Respiratory: No shortness of breath, no wheezes, no cough. Gastrointestinal: No abdominal pain, no vomiting, no diarrhea. Abdominal distension. Genitourinary: No dysuria, no hematuria. Musculoskeletal: Normal range of motion. Skin: No rashes, no pruritis. Neurological: No dizziness, weakness, sensory change, speech change. Endo/Heme/Allergies: No bruising or bleeding. No polydipsia. Pysch: no suicidality, no anxiety, no insomnia. All other systems reviewed and are negative. [facility] Social History Smoking Status: Never smoker Do you use any of these nicotine containing products: None How often do you have a drink containing alcohol: never AUDIT-C Alcohol total score: 0 Non-prescribed substance use: denies use Exam Narrative: Exam Narrative: Constitutional: Well-developed, well-nourished, no acute distress. HEENT: Normocephalic, atraumatic. Neck: Normal range of motion. Nontender. Supple. Heart: Regular. No murmurs. Normal rate. Intact distal pulses. Lungs: Clear to auscultation. No chest discomfort. No wheezes, rhonchi, or rales. Abdomen: Normal bowel sounds. Nontender. No rebound tenderness. Abdominal distension. Genitalia: Deferred. Back: No midline tenderness. Normal range of motion. Extremities: Normal range of motion. No injury. Skin: Intact. No rash. Warm. No erythema or pallor. Neurologic: No altered sensation. No weakness. Alert and oriented. Psychiatric: No suicidality. No anxiety or depression. No insomnia. Nursing notes and vitals signs are reviewed. Const: Vital Signs, click to edit/add: Vital Signs - 24 hr 01/23/24 13:49 01/23/24 15:51 Temperature 97.0 F L Pulse Rate [Right Pulse Oximeter] 81 74 Respiratory Rate 18 18 Blood Pressure [Ri ght Upper Arm] 97/56 L 119/77 Pulse Oximetry 98 97 Oxygen Delivery Me thod Room Air Course Vital Signs Vital signs: Initial Vital Signs Temperature 97.0 F L 01/23/24 13:49 Temperature Source Temporal Artery Scan 01/23/24 13:49 Pulse Rate 81 01/23/24 13:49 Respiratory Rate 18 01/23/24 13:49 Blood Pressure 97/56 L 01/23/24 13:49 Blood Pressure Mean 69 L 01/23/24 13:49 Blood Pressure Position Sitting 01/23/24 13:49 Pulse Oximetry 98 01/23/24 13:49 Oxygen Delivery Method Room Air 01/23/24 13:49 Vital Signs Temperature 97.0 F L 01/23/24 13:49 Pulse Rate 81 01/23/24 13:49 Respiratory Rate 18 01/23/24 13:49 Blood Pressure 97/56 L 01/23/24 13:49 Pulse Oximetry 98 01/23/24 13:49 Oxygen Delivery Method Room Air 01/23/24 13:49 Temperature 97.0 F L 01/23/24 13:49 Pulse Rate 74 01/23/24 15:51 Respiratory Rate 18 01/23/24 15:51 Blood Pressure 119/77 01/23/24 15:51 Pulse Oximetry 97 01/23/24 15:51 Oxygen Delivery Method Room Air 01/23/24 13:49 Medical Decision Making MDM Narrative Medical decision making narrative: This patient comes in with distended abdomen that is a new finding for him. An IV was established and labs are acquired. His hemoglobin is improved after receiving a unit of blood in his last visit. His lactate also has decreased to around 4 compared to 11/[address] scan of the abdomen and pelvis is obtained and shows evidence of liver cirrhosis with ascites. There are no other abnormalities. Patient's liver enzymes are essentially normal. He tells me th at he does use alcohol occasionally. I advised him to completely discontinue alcohol and also stressed the importance of a low-sodium diet, less than 2000 mg per day. He received prescriptions for spironolactone and Lasix and states that he has a follow-up appointment with a physician in 3 days. Lab Data Labs: Lab Results 01/23/24 01/23/24 Range/Units 14:20 15:40 WBC 6.93 (4.50-11.00) K/uL RBC 3.38 L (4.30-5.90) m/uL Hgb 9.4 L (13.5-17.5) gm/dL Hct 29.2 L (37.0-53.0) % MCV 86 (80-100) fL MCH 28 (26-34) pg MCHC 32 (32-36) gm/dL RDW Coeff of Stacey 15.8 H (11.5-15.5) % Plt Count 228 (140-440) K/uL Neut % (Auto) 56.5 (42.0-72.0) % Lymph % (Auto) 33.2 (20-44) % [place] % (Auto) 7.8 (0.0-11.0) % Eos % (Auto) 1.2 (0.0-7.0) % Baso % (Auto) 1.0 (0.0-3.0) % Neut # (Auto) 3.92 (1.7-7.0) K/uL Lymph # (Auto) 2.30 (0.90-2.90) K/uL [place] # (Auto) 0.50 (0.00-0.90) K/UL Eos # (Auto) 0.08 (0.00-0.50) K/uL Baso # (Auto) 0.07 (0.00-0.30) K/uL Abs Immat Gran (auto) 0.02 (0.00-0.30) K/uL Imm/Tot Granulo (auto) 0.3 % Sodium 133 L (135-149) mmol/L Potassium 4.8 (3.6-5.1) mmol/L Chloride 100 (96-114) mmol/L Carbon Dioxide 22 (20-32) mmol/L Anion Gap 11 (7-15) mEq/L BUN 13 (7-30) mg/dL Creatinine 0.8 (0.5-1.5) mg/dL Estimated Creat Clear 62.37 Estimated GFR 93 ml/min Glucose 231 H (60-115) mg/dL Lactate 4.6 H* (0.5-1.9) mmol/L Calcium 8.5 (8.4-10.6) mg/dL Total Bilirubin 1.4 (0.1-1.5) mg/dL Direct Bilirubin 0.6 H (0.0-0.5) mg/dL AST 68 H (12-35) U/L ALT 17 (4-50) U/L Alkaline Phosphatase 115 (40-150) U/L Total Protein 7.6 (6.0-8.3) g/dL Albumin 3.9 (3.3-5.0) g/dL Urine Color Yellow (Yellow) Urine Appearance Clear (Clear) Urine pH 5.5 (5.0-8.5) Ur Specific [place] <= 1.005 (1.000-1.030) Urine Protein Negative (Negative) Urine Glucose (UA) 3+ A (Negative) Urine Ketones Negative (Negative) Urine Blood Negative (Negative) Urine Nitrite Negative (Negative) Urine Bilirubin Negative (Negative) Urine Urobilinogen 1.0 (0.2-1.0) Ur Leukocyte Esterase Negative (Negative) Urine RBC 0-2 (0-2) Urine WBC 5-10 A (0-5) Ur Squamous Epith Cells Few (None-Few) Urine Bacteria Few A (None) Discharge Plan Discharge Clinical Impression: Cirrhosis of liver, Ascites Patient Disposition: Home, Self-Care Condition: Unchanged Additional Instructions: Take spironolactone and Lasix as prescribed. Avoid alcohol. Maintain a low- sodium diet with intake of less than 2000 mg per day. Follow up with physician as scheduled in 3 days. Prescriptions: New furosemide 40 mg tablet 40 mg PO DAILY Qty: 30 2RF spironolactone 100 mg tablet 100 mg PO DAILY Qty: 30 2RF No Action atorvastatin 40 mg tablet 40 mg PO HS carbidopa-levodopa 25-100 mg tablet 2 tab PO TID metformin 500 mg tablet 1,000 mg PO BID glipizide 10 mg tablet extended release 24hr 10 mg PO DAILY nitroglycerin 0.4 mg tablet, sublingual 0.4 mg sublingual Q5M PRN Jardiance 25 mg tablet 25 mg PO DAILY ergocalciferol (vitamin D2) [Drisdol] 1,250 mcg (50,000 unit) capsule 1,250 mcg PO 3XW aspirin 81 mg capsule 81 mg PO DAILY cyanocobalamin (vitamin B-12) 500 mcg tablet 500 mcg PO DAILY pantoprazole 40 mg tablet,delayed release (DR/EC) 40 mg PO BID Follow Up/Referrals: Alvaro Monique MD [Primary Care Provider] - Stand Alone Forms: [facility] Info Instructions
== END 2024-01-23 16:52 | disposition home or self-care (01) ==
PROVIDERS: Emergency Provider Emergency Medicine Emergency Medical Services; PCP Family Medicine
DX: K74.60 Unspecified cirrhosis of liver (principal); R18.8 Other ascites
CPT/HCPCS: 36415; 74177; 80048; 80076; 81001; 83605; 85025; 87086; 87186; 99284; 99285; Q9967

== ENCOUNTER 2024-01-26 10:14 | Outpatient (CLI) | payer MEDICARE, BC, SELFPAY ==
--- NOTE | 2024-01-26 11:17 | W.ANESCHARGE ---
Anesthesia Charges Start Date/Time Anesthesia Start Date: 01/26/24 Anesthesia Start Time: 11:25 Stop Date/Time Anesthesia Stop Date: 01/26/24 Anesthesia Stop Time: 11:43 Summary Extremes of Age - Over 70 or under 1: MDA
--- NOTE | 2024-01-26 11:45 | W.ANESCHARGE ---
Anesthesia Charges Start Date/Time Anesthesia Start Date: 01/26/24 Anesthesia Start Time: 11:25 Stop Date/Time Anesthesia Stop Date: 01/26/24 Anesthesia Stop Time: 11:43
== END 2024-01-26 10:15 | disposition home or self-care (01) ==
PROVIDERS: PCP Family Medicine; Visit Provider Internal Medicine Gastroenterology
DX: D50.9 Iron deficiency anemia, unspecified (principal); K74.60 Unspecified cirrhosis of liver; I85.10 Secondary esophageal varices without bleeding; K31.89 Other diseases of stomach and duodenum
CPT/HCPCS: 00731; 00790; 43239; 88305; 99100; J2704

== ENCOUNTER 2024-02-15 07:03 | Outpatient (CLI) | payer MEDICARE, BC, SELFPAY ==
--- NOTE | 2024-02-15 07:15 | CRLHL7_ITS ---
For Patients: As a result of the Century Cures Act, medical imaging exams and procedure reports are released immediately into your electronic medical record. You may view this report before your referring provider. If you have questions, please contact your health care provider. INDICATION: Cirrhosis. TECHNIQUE: Ultrasound abdomen limited. Sonographic images of the right upper quadrant were obtained using evans-scale and color Doppler images. COMPARISON: None. FINDINGS: Liver: Coarsened hepatic echotexture, compatible with provided history of cirrhosis. No definite peripheral nodularity. No suspicious masses. No intrahepatic biliary dilatation. Main portal vein patent with normal hepatopetal directional flow. Gallbladder: No stones or sludge. Normal wall thickness. No pericholecystic fluid. Common bile duct: 6 mm. Pancreas: Unremarkable. Right kidney: Normal in size. Normal echotexture and cortex. No suspicious masses, stones, or hydronephrosis. Vasculature: Proximal abdominal aorta and IVC are unremarkable. IMPRESSION: Heterogeneous hepatic echotexture, consistent with provided history of cirrhosis. No focal hepatic lesion. Dictated by Puma Vance MD @ 02/15/2024 7:51:32 AM (Electronically Signed)
== END 2024-02-15 07:04 | disposition home or self-care (01) ==
LOC: US 07:04
PROVIDERS: PCP Family Medicine
DX: K74.69 Other cirrhosis of liver (principal); D64.9 Anemia, unspecified; E11.69 Type 2 diabetes mellitus with other specified complication; D50.9 Iron deficiency anemia, unspecified
CPT/HCPCS: 76705

== ENCOUNTER 2024-03-06 08:45 | Outpatient (RCR) | payer MEDICARE, BC, SELFPAY | END 2024-07-04 23:59 | disposition home or self-care (01) | PROVIDERS: PCP Family Medicine; Visit Provider Physician Assistant | DX: Z91.89 Other specified personal risk factors, not elsewhere classified (principal); Z51.89 Encounter for other specified aftercare; K74.69 Other cirrhosis of liver; D50.9 Iron deficiency anemia, unspecified | CPT/HCPCS: 97165 ==

== ENCOUNTER 2024-07-17 09:02 | Outpatient (CLI) | payer MEDICARE, BC, SELFPAY | END 2024-07-17 09:03 | disposition home or self-care (01) | LOC: US 09:03 | PROVIDERS: PCP Family Medicine; Visit Provider Physician Assistant | DX: K74.69 Other cirrhosis of liver (principal); K76.89 Other specified diseases of liver | CPT/HCPCS: 76705 ==

== ENCOUNTER 2024-11-22 08:15 | Outpatient (RCR) | payer MEDICARE, BC, SELFPAY | END 2024-11-22 09:20 | disposition home or self-care (01) | PROVIDERS: PCP Family Medicine; Visit Provider Family Medicine | DX: M54.16 Radiculopathy, lumbar region (principal); Z51.89 Encounter for other specified aftercare | CPT/HCPCS: 97110; 97140; 97161 ==

== ENCOUNTER 2024-11-28 08:19 | Outpatient (CLI) | payer MEDICARE, BC, SELFPAY ==
--- NOTE | 2024-11-28 09:15 | CRLHL7_ITS ---
For Patients: As a result of the Century Cures Act, medical imaging exams and procedure reports are released immediately into your electronic medical record. You may view this report before your referring provider. If you have questions, please contact your health care provider. INDICATION: Cirrhosis of liver COMPARISON: 07/17/2024 TECHNIQUE: Real time evans scale imaging and color Doppler analysis was performed of the right upper quadrant. FINDINGS: Liver echotexture is coarsened. No intrahepatic mass. Liver measures 12.7 cm. There is a normal appearance of the hepatic IVC and proximal abdominal aorta. There is no evidence of ascites. The gallbladder is of normal size and there is no evidence of intraluminal stones or sludge. The gallbladder wall measures 4 mm in thickness. The common bile duct is of normal size and measures 6 mm in diameter at the level of the huyen hepatis. The visualized pancreas appears coarsened. There is no evidence of a stone or hydronephrosis within the right kidney. The right kidney measures 11.1 cm in length. Recanalization of the umbilical vein noted. IMPRESSION: Cirrhotic liver. No ascites. Portal hypertension is present. Thickening of the gallbladder wall related to chronic liver disease. Dictated by Blake Alford MD @ 11/28/2024 4:13:48 PM (Electronically Signed)
== END 2024-11-28 08:20 | disposition home or self-care (01) ==
LOC: US 08:19
PROVIDERS: PCP Family Medicine; Visit Provider Physician Assistant
DX: K74.69 Other cirrhosis of liver (principal); K76.6 Portal hypertension; D50.9 Iron deficiency anemia, unspecified
CPT/HCPCS: 76705